=== PATIENT | female | born 1970 | race Caucasian/White ===

== ENCOUNTER 2018-01-23 21:23 | Emergency (ER) | payer MEDICARE, MEDICAID ==
[~2018-01-23] VITALS: Ht 175.3 cm; Wt 74.8 kg
[2018-01-23 21:56] VITALS: BP 129/98
== END 2018-01-24 00:17 | disposition home or self-care (01) ==
LOC: ER 21:24
DX: F20.9 Schizophrenia, unspecified (principal); I10 Essential (primary) hypertension; J45.909 Unspecified asthma, uncomplicated; Z85.9 Personal history of malignant neoplasm, unspecified
CPT/HCPCS: 70450-TC; A4606; Z7610